=== PATIENT | male | born 1960 | race Caucasian/White ===

== ENCOUNTER 2018-03-15 00:01 | Emergency (ER) | payer MEDICAID, OTHER ==
[2018-03-15] MEDS ORDERED: IPRATROPIUM/ALBUTEROL 3 ML NEB INH STA (00:06)
[2018-03-15] MEDS ORDERED: methylPREDNISolone SUCCINATE 125 MG/2 ML VIAL IVP STA (00:06)
[2018-03-15 00:29] LABS: BASOPHILS # (AUTO) 0.1 10^3/uL (0.0-0.1); EOSINOPHILS # (AUTO) 1.1 10^3/uL (0.0-0.7); EOSINOPHILS % (AUTO) 7.8 %; HGB - HEMOGLOBIN 14.2 g/dL (14.0-18.0); LYMPHOCYTES # (AUTO) 3.5 10^3/uL (1.5-3.5); LYMPHOCYTES % (AUTO) 24.2 %; MEAN CORPUSCULAR HEMOGLOBIN 30.3 pg (27.0-31.0); MEAN CORPUSCULAR VOLUME 91.9 fL (80.0-94.0); MEAN PLATELET VOLUME 7.5 fL (7.4-11.4); MONOCYTES # (AUTO) 0.7 10^3/uL (0.0-1.0); MONOCYTES % (AUTO) 4.9 %; NEUTROPHILS % (AUTO) 62.1 %; PLT - PLATELET COUNT 341 10^3/uL (130-450); RED BLOOD COUNT 4.68 10^6/uL (4.70-6.10); RED CELL DISTRIBUTION WIDTH 13.8 % (12.0-15.0); WHITE BLOOD COUNT 14.4 x10^3/uL (4.8-10.8)
[2018-03-15 00:58] LABS: ALBUMIN 4.1 g/dL (3.2-5.5); ALBUMIN/GLOBULIN RATIO 1.5 (1.0-2.2); BILIRUBIN,TOTAL 0.4 mg/dL (0.2-1.0); CREATININE 0.9 mg/dL (0.6-1.2); TOTAL PROTEIN 6.8 g/dL (6.7-8.2)
--- NOTE | 2018-03-15 01:14 | ED Physician Documentation ---
PD HPI DYSPNEA - Stated complaint Stated Complaint: SHORTNESS OF BREATH - History obtained from History obtained from: Patient - History of Present Illness Timing - onset: Yesterday Timing - onset during: Rest Timing - details: Gradual onset, Still present Worsened by: Exertion, Coughing, Smoke Associated symptoms: Cough, Wheezing Similar symptoms before: Work up / diagnostics, Treatment Recently seen: Not recently seen - Additional information Additional information: Patient is a 57 year old male who is presenting to the emergency department for wheezing and cough. patient stated that the symptoms have been going on for the last few days and they have become progressively worse. Patient still smokes. Patient denies any fevers but reports he was treated for pneumonia not too long ago. Review of Systems Constitutional: denies: Fever, Chills Cardiac: denies: Chest pain / pressure, Pedal edema Respiratory: reports: Dyspnea, Cough, Wheezing GI: denies: Nausea, Vomiting Skin: denies: Rash, Lesions Immunocompromised: denies: Immunocompromised PD PAST MEDICAL HISTORY - Past Medical History Past Medical History: Yes Cardiovascular: Other Respiratory: COPD Endocrine/Autoimmune: None GI: None : Benign prostate hypertrophy Psych: None Musculoskeletal: None Derm: None - Past Surgical History Past Surgical History: Yes - Present Medications Home Medications: Ambulatory Orders Medication Instructions Recorded Confirmed Albuterol Sulf [Ventolin Hfa 1 - 2 puffs INH PRN PRN 03/15/18 03/15/18 Inhaler] Ipratropium/Albuterol [Combivent 4 gm IH Q6HR PRN #1 aer.w.adap 03/15/18 Respimat] predniSONE [Prednisone] 40 mg PO DAILY 5 Days tablet 03/15/18 predniSONE [Prednisone] 60 mg PO DAILY 03/15/18 03/15/18 - Allergies Allergies/Adverse Reactions: Allergies Allergy/AdvReac Type Severity Reaction Status Date / Time No Known Drug Allergies Allergy Verified 03/15/18 00:08 - Social History Does the pt smoke?: Yes Smoking Status: Current every day smoker Does the pt drink ETOH?: No Does the pt have substance abuse?: No - Immunizations Immunizations are current?: No Immunizations: TDAP current <10years - POLST Patient has POLST: No PD ED PE NORMAL - Vitals Vital signs reviewed: Yes - General General: Alert and oriented X 3 - HEENT HEENT: Atraumatic, PERRL - Neck Neck: No JVD - Cardiac Cardiac: RRR, No murmur - Abdomen Abdomen: Soft - Derm Derm: Normal color, Warm and dry - Extremities Extremities: No deformity, No edema - Neuro Neuro: Alert and oriented X 3, No motor deficit Eye Opening: Spontaneous Motor: Obeys Commands Verbal: Oriented GCS Score: 15 PD ED PE EXPANDED - HEENT HEENT: Dry mucous membranes - Respiratory Respiratory: Wheezing, Right upper lobe, Right middle lobe, Left upper lobe, Left lower lobe Results - Vitals Vitals: Vital Signs - 24 hr 03/15/18 03/15/18 03/15/18 00:05 00:20 00:41 Temperature 36.4 C L Heart Rate 91 85 89 Respiratory 22 16 18 Rate Blood Pressure 158/92 H 117/73 O2 Saturation 91 L 96 03/15/18 01:10 Temperature Heart Rate 79 Respiratory 19 Rate Blood Pressure 116/76 O2 Saturation 93 Oxygen O2 Source Nasal cannula Oxygen Flow Rate 2 - Labs Labs: Laboratory Tests 03/15/18 03/15/18 03/15/18 00:18 00:18 00:18 WBC 14.4 H RBC 4.68 L Hgb 14.2 Hct 43.0 MCV 91.9 MCH 30.3 MCHC 33.0 RDW 13.8 Plt Count 341 MPV 7.5 Neut # 9.0 H Lymph # 3.5 [place] # 0.7 Eos # 1.1 H Baso # 0.1 Absolute Nucleated RBC 0.01 Nucleated RBC % 0.1 Sodium 139 Potassium 3.8 Chloride 107 Carbon Dioxide 25 Anion Gap 7.0 BUN 22 H Creatinine 0.9 Estimated GFR (MDRD) 87 L Glucose 134 H Calcium 9.0 Total Bilirubin 0.4 AST 20 ALT 35 Alkaline Phosphatase 37 L Troponin I < 0.04 B-Natriuretic Peptide Total Protein 6.8 Albumin 4.1 Globulin 2.7 Albumin/Globulin Ratio 1.5 Lipase 32 03/15/18 00:18 WBC RBC Hgb Hct MCV MCH MCHC RDW Plt Count MPV Neut # Lymph # [place] # Eos # Baso # Absolute Nucleated RBC Nucleated RBC % Sodium Potassium Chloride Carbon Dioxide Anion Gap BUN Creatinine Estimated GFR (MDRD) Glucose Calcium Total Bilirubin AST ALT Alkaline Phosphatase Troponin I B-Natriuretic Peptide 162 H Total Protein Albumin Globulin Albumin/Globulin Ratio Lipase - Rads (name of study) chest x-ray Radiology: Final report received (within normal limits) PD MEDICAL DECISION MAKING - ED course Complexity details: reviewed old records, reviewed results, re-evaluated patient , considered differential, d/w patient ED course: patient was seen and examined at bedside. patient had bilateral wheezing. IV access was gained, labs were drawn. patient was treated with three duonebs and solumedrol. Patient was sent for imaging. when patient returned he was re- evaluated and was feeling much better. Patient's wheezing had resolved. Patient's chest x-ray was within normal limits. patient required no further work up at this time and was stable for discharge with outpatient follow up. Departure - Departure Disposition: Home, Self Care Clinical Impression: Moderate COPD (chronic obstructive pulmonary disease) Condition: Good Instructions: ED COPD Flare Follow-Up: Bret Nixon MD [Primary Care Provider] - Prescriptions: Ipratropium/Albuterol [Combivent Respimat] 4 gm IH Q6HR PRN #1 aer.w.adap PRN Reason: Wheezing predniSONE [Prednisone] 40 mg PO DAILY 5 Days tablet Comments: Your symptoms today are being caused by a copd flare. The most important thing that you can do is to stop smoking. You should follow up with your doctor this week as it may be time to be on an inhaled steroid or long acting beta agonist. You should return to the emergency department at any time for worsening symptoms.
--- NOTE | 2018-03-15 01:19 | XRAY Preliminary Report ---
Exam: XR CHEST 2 VIEW X-RAY IMPRESSION: Normal 2-view chest radiography. [facility] SITE ID: [id number]
--- NOTE | 2018-03-15 01:20 | XRAY Report ---
EXAM: CHEST RADIOGRAPHY EXAM DATE: 03/15/2018 12:46 AM. CLINICAL HISTORY: Cough, wheezing, short of breath. COMPARISON: None. TECHNIQUE: 2 views. FINDINGS: Lungs/Pleura: No focal opacities evident. No pleural effusion. No pneumothorax. Normal volumes. Mediastinum: Heart and mediastinal contours are unremarkable. Other: None. IMPRESSION: Normal 2-view chest radiography. [facility] Referring Provider Line: [phone] SITE ID: [id number]
[2018-03-15 01:32] VITALS: BP 124/73
== END 2018-03-15 01:35 | disposition home or self-care (01) ==
LOC: ED 00:01
DX: J44.9 Chronic obstructive pulmonary disease, unspecified (principal); F17.210 Nicotine dependence, cigarettes, uncomplicated
CPT/HCPCS: 36415; 71046; 80053; 83690; 83880; 84484; 85025; 94640; 94664; 96374; 99284